=== PATIENT | female | born 2000 | race Caucasian/White ===

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

== ENCOUNTER 2022-07-06 17:08 | Inpatient (IN) ==
[2022-07-06 17:47] LABS: Appearance Urine Clear (Clear); Bilirubin Urine Negative (Negative); Blood Urine Negative (Negative); Color Urine Yellow; Glucose Urine UA Negative (Negative); Ketones Urine Trace (Negative); Leukocyte Esterase Urine Negative (Negative); Nitrite Urine Negative (Negative); Protein Urine Negative (Negative); Specific Gravity Urine 1.024 (1.000-1.030); Urobilinogen Urine Negative (Negative)
[2022-07-06 17:54] LABS: Basophils # (auto) 0.05 K/uL (0-0.2); Basophils % (auto) 0.6 %; Eosinophils # (auto) 0.15 K/uL (0-0.50); Eosinophils % (auto) 1.8 %; Hematocrit (blood only) 36.8 % (34.1-44.9); Hemoglobin 12.7 g/dl (12.0-16.0); Immature Granulocytes # (auto) 0.02 K/uL (0.00-0.02); Immature Granulocytes % (auto) 0.2 %; Lymphocytes # (auto) 3.12 K/uL (1.2-3.4); Lymphocytes % (auto) 37.4 %; Mean Corpuscular Hgb Conc 34.5 g/dL (32.0-36.0); Mean Corpuscular Volume 86.8 fL (80.0-100.0); Mean Platelet Volume 9.3 fL (9.4-12.3); Monocytes # (auto) 0.55 K/uL (0.24-0.82); Monocytes % (auto) 6.6 %; Neutrophils # (auto) 4.46 K/uL (1.4-6.5); Neutrophils % (auto) 53.4 %; Platelet Count 292 K/uL (130-400); RDW Coefficient of Variation 11.9 % (11.5-14.5); RDW Standard Deviation 37.3 fL (36.4-46.3); Red Blood Count 4.24 M/uL (3.93-5.22); White Blood Count 8.35 K/ul (4.8-10.8)
[2022-07-06 18:08] LABS: Pregnancy Test, Serum Negative (Negative)
[2022-07-06 18:18] LABS: Amphetamines+Metham, Urine Neg (Neg); Barbiturates, Urine Neg (Neg); Benzodiazepine, Urine Neg (Neg); Cocaine, Urine Neg (Neg); MDMA (Ecstacy), Urine Neg (Neg); Methadone, Urine Neg (Neg); Opiate, Urine Neg (Neg); Phencyclidine, Urine Neg (Neg)
[2022-07-06 18:25] LABS: Alanine Aminotransferase 12 U/L (7-52); Albumin Globulin Ratio 1.7 (0.9-2); Albumin Level 4.7 gm/dl (3.4-5.0); Alkaline Phosphatase 79 U/L (34-104); Anion Gap 7 (3-11); Aspartate Aminotransferase 17 U/L (13-39); BUN Creatinine Ratio 12.5 (10-20); Bilirubin,Total 0.3 mg/dl (0.2-1.0); Blood Urea Nitrogen 6 mg/dl (6-23); Carbon Dioxide 28 mmol/L (21-32); Chloride 104 mmol/L (98-107); Creatinine Clr Calc Pharmacy 135.4 ml/min; Est GFR (African American) > 150.0 ml/min; Est GFR (Non-African American) 142.2 ml/min; Globulin 2.8 gm/dl (2.5-4.0); Glucose 87 mg/dl (70-99(Fasting)); Potassium 3.6 mmol/L (3.5-5.1); Sodium 139 mmol/L (136-145); Total Protein 7.5 gm/dl (6.0-8.3)
--- NOTE | 2022-07-06 18:51 | Emergency Department Note ---
Impression & Plan Suicidal ideation, Crohn's disease ED Provider Note CHIEF COMPLAINT: suicidal ideation HISTORY OF PRESENT ILLNESS: This 21 yo female patient presents to the emergency department with complaints of suicidal ideation. The patient has had thoughts of overdosing on pills. She was diagnosed with Crohn's disease 2 years ago and has not been able to work. She states she has been dealing with her Crohn's disease and fairly persistent diarrhea prohibiting her from working currently. The patient filed for disability but was told by gastroenterology that she is able to work. This has been weighing on her heavily. She states she had a bowel resection that did not help her symptoms. She is currently on a biologic infusion through [facility]. The patient states currently she has no fevers or blood in her stool. She has been having "fairly formed" stools over the last several days. She denies any alcohol intoxication, substance abuse, medication overdose or attempts at self-harm recently. States she was referred to the emergency department by her therapist who states she needs additional services that they are not able to provide as an outpatient. REVIEW OF SYSTEMS: A review of systems was performed with positives and pertinent negatives listed in the history of present illness. 10 systems were reviewed and are otherwise negative. ALLERGIES: see below MEDICATIONS: see below PMH: see below SOCIAL HISTORY: see below DDx: Mood disorder, infection, hypoglycemia, electrolyte abnormalities, cardiac sources, intracerebral event, toxicologic, trauma, neurologic, as well as other pathologies. PHYSICAL EXAM: Vital signs reviewed. General: Well-appearing 21 yo female, in no significant distress. HEENT: No scleral icterus, PERRLA, neck supple. Atraumatic. Cardiovascular: Regular rate and rhythm, no extra sounds. Pulmonary: Clear to auscultation bilaterally, normal work of breathing. Abdomen: Soft, nontender, nondistended, positive bowel sounds. Musculoskeletal: Atraumatic, no peripheral edema. Neurologic: Patient awake alert and oriented x 3 Psych: Positive SI with plan, negative HI Skin: Warm, dry, no rash EMERGENCY DEPARTMENT COURSE/MDM: This patient was evaluated and appeared to be no significant distress. Patient was medically cleared and referred to the mental health nurse case manager for assessment. Patient was felt to require i npatient psychiatric care and was voluntary for admission. 3 S. evaluated the patient she has been accepted for admission. Patient is aware of plan and agrees. DISPOSITION: Admit Past Med/Surg History Medical History Agoraphobia Anxiety Asthma Bipolar 1 disorder Crohn's disease Family history of Crohn's disease PCOS (polycystic ovarian syndrome) Tourettes syndrome Trichotillomania Surgical History No significant past surgical history Family History Mother Family history of thyroid problem Other Anxiety Social History Smoking Status: Never smoker Hx Alcohol Use: No Hx Substance Use: No Preferred Language: Malawian Communication Ability: Effective Immunology Specialist Required: No Beliefs That Will Affect Care: None Current Living Situation: Parent Feels Safe at Home: Yes Assistive Devices: Glasses Allergies Allergies Allergy/AdvReac Type Severity Reaction Status Date / Time cefprozil Allergy Intermediate HIVES Verified 01/10/22 21:14 Home Meds Home Medications Medication Instructions Recorded Confirmed famotidine 10 mg tablet (Heartburn 10 mg PO BID 09/03/20 07/06/22 Relief (famotidine)) dicyclomine 10 mg capsule 10 mg PO QID PRN Abdominal Pain 03/03/21 07/06/22 Lexapro 10 mg PO HS 07/06/22 07/06/22 levonorgestrel-ethinyl estradiol 1 tab PO DAILY 07/06/22 07/06/22 0.1 mg-20 mcg tablet (Vienva) vedolizumab 300 mg intravenous mg IV 07/06/22 solution (Entyvio) Results & Data (ED) Vital Signs Vital Signs - 24 hr 07/06/22 17:12 Temperature 36.5 C Temperature Source Temporal Artery Scan Pulse Rate 97 H Respiratory Rate 18 Blood Pressure 121/86 Blood Pressure Mean 97 Blood Pressure Position Sitting Pulse Oximetry 100 Oxygen Delivery Method Room Air Sepsis Recent Fever Within 48 Hours No Sepsis New/Unexplained Change in Mental Status No Sepsis Action Taken by Nursing No Action Required Home Medications Current Medication List: was personally reviewed by me Laboratory Data Attestation: I reviewed the patient's lab results. Result diagrams: 07/06/22 17:40 07/06/22 17:40 Lab Results 07/06/22 07/06/2222 Range/Units 17:27 17:27 17:40 WBC 8.35 (4.8-10.8) K/ul RBC 4.24 (3.93-5.22) M/uL Hgb 12.7 (12.0-16.0) g/dl Hct 36.8 (34.1-44.9) % MCV 86.8 (80.0-100.0) fL MCH 30.0 (25.0-34.0) pg MCHC 34.5 (32.0-36.0) g/dL RDW Std Deviation 37.3 (36.4-46.3) fL RDW Coeff of Vijay 11.9 (11.5-14.5) % Plt Count 292 (130-400) K/uL MPV 9.3 L (9.4-12.3) fL Immature Gran % (Auto) 0.2 % Neut % (Auto) 53.4 % Lymph % (Auto) 37.4 % [place] % (Auto) 6.6 % Eos % (Auto) 1.8 % Baso % (Auto) 0.6 % Neut # (Auto) 4.46 (1.4-6.5) K/uL Lymph # (Auto) 3.12 (1.2-3.4) K/uL [place] # (Auto) 0.55 (0.24-0.82) K/uL Eos # (Auto) 0.15 (0-0.50) K/uL Baso # (Auto) 0.05 (0-0.2) K/uL Immature Gran # (Auto) 0.02 (0.00-0.02) K/uL Sodium (136-145) mmol/L Potassium (3.5-5.1) mmol/L Chloride (98-107) mmol/L Carbon Dioxide (21-32) mmol/L Anion Gap (3-11) BUN (6-23) mg/dl Creatinine (0.6-1.2) mg/dl Est Cr Clr Drug Dosing ml/min Est GFR ( Amer) ml/min Est GFR (Non-Af Amer) ml/min BUN/Creatinine Ratio (10-20) Glucose (70-99(Fasting)) mg/dl Calcium (8.5-10.1) mg/dl Total Bilirubin (0.2-1.0) mg/dl AST (13-39) U/L ALT (7-52) U/L Alkaline Phosphatase (34-104) U/L Total Protein (6.0-8.3) gm/dl Albumin (3.4-5.0) gm/dl Globulin (2.5-4.0) gm/dl Albumin/Globulin Ratio (0.9-2) TSH (0.300-4.500) uIu/ml HCG, Qual (Negative) Urine Color Yellow Urine Appearance Clear (Clear) Urine pH 6.0 (4.5-7.5) Ur Specific [place] 1.024 (1.000-1.030) Urine Protein Negative (Negative) Urine Glucose (UA) Negative (Negative) Urine Ketones Trace H (Negative) Urine Blood Negative (Negative) Urine Nitrite Negative (Negative) Urine Bilirubin Negative (Negative) Urine Urobilinogen Negative (Negative) Ur Leukocyte Esterase Negative (Negative) Salicylates (3.0-30) mg/dl Urine Opiates Screen Neg (Neg) Ur Methadone, Qual Neg (Neg) Acetaminophen (10-30) ug/ml Urine Barbiturates Neg (Neg) Ur Phencyclidine (PCP) Neg (Neg) U Amphetamin/Meth Scrn Neg (Neg) MDMA (Ecstasy) Screen Neg (Neg) U Benzodiazepines Scrn Neg (Neg) Ur Cocaine Metabolite Neg (Neg) U Marijuana (THC) Screen Neg (Neg) Ethyl Alcohol mg/dL (<10.0) mg/dl SARS-CoV-2, RNA, NAAT (NEGATIVE) 07/06/22 07/06/22 07/06/22 Range/Units 17:40 17:40 17:40 WBC (4.8-10.8) K/ul RBC (3.93-5.22) M/uL Hgb (12.0-16.0) g/dl Hct (34.1-44.9) % MCV (80.0-100.0) fL MCH (25.0-34.0) pg MCHC (32.0-36.0) g/dL RDW Std Deviation (36.4-46.3) fL RDW Coeff of Vijay (11.5-14.5) % Plt Count (130-400) K/uL MPV (9.4-12.3) fL Immature Gran % (Auto) % Neut % (Auto) % Lymph % (Auto) % [place] % (Auto) % Eos % (Auto) % Baso % (Auto) % Neut # (Auto) (1.4-6.5) K/uL Lymph # (Auto) (1.2-3.4) K/uL [place] # (Auto) (0.24-0.82) K/uL Eos # (Auto) (0-0.50) K/uL Baso # (Auto) (0-0.2) K/uL Immature Gran # (Auto) (0.00-0.02) K/uL Sodium 139 (136-145) mmol/L Potassium 3.6 (3.5-5.1) mmol/L Chloride 104 (98-107) mmol/L Carbon Dioxide 28 (21-32) mmol/L Anion Gap 7 (3-11) BUN 6 (6-23) mg/dl Creatinine 0.48 L (0.6-1.2) mg/dl Est Cr Clr Drug Dosing 135.4 ml/min Est GFR ( Amer) > 150.0 ml/min Est GFR (Non-Af Amer) 142.2 ml/min BUN/Creatinine Ratio 12.5 (10-20) Glucose 87 (70-99(Fasting)) mg/dl Calcium 10.0 (8.5-10.1) mg/dl Total Bilirubin 0.3 (0.2-1.0) mg/dl AST 17 (13-39) U/L ALT 12 (7-52) U/L Alkaline Phosphatase 79 (34-104) U/L Total Protein 7.5 (6.0-8.3) gm/dl Albumin 4.7 (3.4-5.0) gm/dl Globulin 2.8 (2.5-4.0) gm/dl Albumin/Globulin Ratio 1.7 (0.9-2) TSH 2.347 (0.300-4.500) uIu/ml HCG, Qual (Negative) Urine Color Urine Appearance (Clear) Urine pH (4.5-7.5) Ur Specific [place] (1.000-1.030) Urine Protein (Negative) Urine Glucose (UA) (Negative) Urine Ketones (Negative) Urine Blood (Negative) Urine Nitrite (Negative) Urine Bilirubin (Negative) Urine Urobilinogen (Negative) Ur Leukocyte Esterase (Negative) Salicylates < 3.0 L (3.0-30) mg/dl Urine Opiates Screen (Neg) Ur Methadone, Qual (Neg) Acetaminophen < 3 L (10-30) ug/ml Urine Barbiturates (Neg) Ur Phencyclidine (PCP) (Neg) U Amphetamin/Meth Scrn (Neg) MDMA (Ecstasy) Screen (Neg) U Benzodiazepines Scrn (Neg) Ur Cocaine Metabolite (Neg) U Marijuana (THC) Screen (Neg) Ethyl Alcohol mg/dL (<10.0) mg/dl SARS-CoV-2, RNA, NAAT (NEGATIVE) 07/06/22 07/06/22 07/06/22 Range/Units 17:40 17:40 17:40 WBC (4.8-10.8) K/ul RBC (3.93-5.22) M/uL Hgb (12.0-16.0) g/dl Hct (34.1-44.9) % MCV (80.0-100.0) fL MCH (25.0-34.0) pg MCHC (32.0-36.0) g/dL RDW Std Deviation (36.4-46.3) fL RDW Coeff of Vijay (11.5-14.5) % Plt Count (130-400) K/uL MPV (9.4-12.3) fL Immature Gran % (Auto) % Neut % (Auto) % Lymph % (Auto) % [place] % (Auto) % Eos % (Auto) % Baso % (Auto) % Neut # (Auto) (1.4-6.5) K/uL Lymph # (Auto) (1.2-3.4) K/uL [place] # (Auto) (0.24-0.82) K/uL Eos # (Auto) (0-0.50) K/uL Baso # (Auto) (0-0.2) K/uL Immature Gran # (Auto) (0.00-0.02) K/uL Sodium (136-145) mmol/L Potassium (3.5-5.1) mmol/L Chloride (98-107) mmol/L Carbon Dioxide (21-32) mmol/L Anion Gap (3-11) BUN (6-23) mg/dl Creatinine (0.6-1.2) mg/dl Est Cr Clr Drug Dosing ml/min Est GFR ( Amer) ml/min Est GFR (Non-Af Amer) ml/min BUN/Creatinine Ratio (10-20) Glucose (70-99(Fasting)) mg/dl Calcium (8.5-10.1) mg/dl Total Bilirubin (0.2-1.0) mg/dl AST (13-39) U/L ALT (7-52) U/L Alkaline Phosphatase (34-104) U/L Total Protein (6.0-8.3) gm/dl Albumin (3.4-5.0) gm/dl Globulin (2.5-4.0) gm/dl Albumin/Globulin Ratio (0.9-2) TSH (0.300-4.500) uIu/ml HCG, Qual Negative (Negative) Urine Color Urine Appearance (Clear) Urine pH (4.5-7.5) Ur Specific [place] (1.000-1.030) Urine Protein (Negative) Urine Glucose (UA) (Negative) Urine Ketones (Negative) Urine Blood (Negative) Urine Nitrite (Negative) Urine Bilirubin (Negative) Urine Urobilinogen (Negative) Ur Leukocyte Esterase (Negative) Salicylates (3.0-30) mg/dl Urine Opiates Screen (Neg) Ur Methadone, Qual (Neg) Acetaminophen (10-30) ug/ml Urine Barbiturates (Neg) Ur Phencyclidine (PCP) (Neg) U Amphetamin/Meth Scrn (Neg) MDMA (Ecstasy) Screen (Neg) U Benzodiazepines Scrn (Neg) Ur Cocaine Metabolite (Neg) U Marijuana (THC) Screen (Neg) Ethyl Alcohol mg/dL < 10.0 (<10.0) mg/dl SARS-CoV-2, RNA, NAAT NEGATIVE (NEGATIVE) Administered Medications Aripiprazole (Aripiprazole 5 Mg Tab) 2.5 mg PO HS CAROLEE Stop: 08/06/22 21:59 Last Admin: 07/07/22 21:35 Dose: 2.5 mg Documented By: EW Bismuth Subsalicylate (Bismuth Subsalicylate Liqd 236 Ml) 15 ml PO PRN PRN PRN Reason: Loose Stool Stop: 08/05/22 21:13 Last Admin: 07/08/22 02:35 Dose: 15 ml Documented By: EW Dicyclomine HCl (Dicyclomine Hcl 10 Mg Cap) 10 mg PO BID [facility] Stop: 08/06/22 10:14 Last Admin: 07/07/22 21:37 Dose: 10 mg Documented By: Admin: 07/07/22 11:01 Dose: 10 mg Documented By: HUONGF Escitalopram Oxalate (Escitalopram Oxalate 10 Mg Tab) 10 mg PO HS [facility] Stop: 08/05/22 21:59 Last Admin: 07/07/22 21:35 Dose: 10 mg Documented By: Admin: 07/06/22 22:11 Dose: 10 mg Documented By: COLTEN Famotidine (Famotidine 10 Mg Tablet) 10 mg PO BID [facility] Stop: 08/05/22 22:14 Last Admin: 07/07/22 21:36 Dose: 10 mg Documented By: Admin: 07/07/22 08:52 Dose: 10 mg Documented By: Admin: 07/06/22 22:38 Dose: 10 mg Documented By: COLTEN Tayloraneous (Norethindrone: Patient's Own Oral Contraceptive) 1 each PO HS S Stop: 08/06/22 21:59 Last Admin: 07/07/22 21:35 Dose: 1 each Documented By: EW Discontinued Medications Dicyclomine HCl (Dicyclomine Hcl 10 Mg Cap) 10 mg PO QID PRN PRN Reason: Pain Stop: 08/05/22 22:07 Last Admin: 07/06/22 22:38 Dose: 10 mg Documented By: COLTEN Browncellaneous ([Vienva] 0.1-20 Mg-Mcg~Order Awaiting Action) 1 each N/A QS [facility] Stop: 08/06/22 15:59 Last Admin: 07/07/22 17:58 Dose: Not Given Documented By: PINKY Blood Pressure Blood Pressure Findings: Normal blood pressure Blood Pressure Disposition: did not require urgent referral Discharge Plan Visit Data Chief Complaint: Mental Health Evaluation Stated Complaint: MENTAL HEALTH EVAULAUATION ED Provider: Sissy Guillermo Discharge Problem: Suicidal ideation, Crohn's disease Patient Disposition: Admitted As Inpatient Discharge Instructions Interventions: ED Discharge Assessment Last Done: 07/06/22 20:45
[2022-07-06 19:08] LABS: Acetaminophen < 3 ug/ml (10-30); Salicylate < 3.0 mg/dl (3.0-30)
[2022-07-06] MEDS ORDERED: hydrOXYzine HCl 25 MG TAB PO PRN ×2 (21:14)
[2022-07-06] MEDS ORDERED: SODIUM CHLORIDE 0.65% NA SOLN 45 ML (OCEAN) PRN (21:14)
[2022-07-06] MEDS ORDERED: BISMUTH SUBSALICYLATE LIQD 236 ML PO PRN (21:14)
[2022-07-06] MEDS ORDERED: ACETAMINOPHEN 325 MG TAB PO PRN (21:14)
[2022-07-06] MEDS ORDERED: ALUMINUM/MAGNESIUM SUSP 30 ML UDC PO PRN (21:14)
[2022-07-06] MEDS ORDERED: MAGNESIUM HYDROXIDE SUSP 30 ML UDC PO PRN (21:14)
[2022-07-06] MEDS ORDERED: DICYCLOMINE HCL 10 MG CAP PO PRN (22:08)
[2022-07-06] MEDS: ESCITALOPRAM OXALATE 10 MG TAB PO SCH (22:11)
[2022-07-06] MEDS: FAMOTIDINE 10 MG TABLET PO SCH (22:38)
[2022-07-07] MEDS: FAMOTIDINE 10 MG TABLET PO SCH ×2 (08:52→21:36)
[2022-07-07] MEDS ORDERED: DICYCLOMINE HCL 10 MG CAP PO PRN (10:05)
[2022-07-07] MEDS: DICYCLOMINE HCL 10 MG CAP PO SCH ×2 (11:01→21:37)
--- NOTE | 2022-07-07 13:48 | History & Physical ---
Date of Service July 07, 2022 Impression / Recommendations Impression 21 yo female with hx of inpatient care age 18 for ?activation on medication that was initially started for Tourette's, presents with ongoing anxiety/compulsions/somatic preoccupation in the context of poorly controlled Crohn's symptoms. (1) Anxiety: (2) Crohn's disease: Plan The patient was admitted to the [facility] ([facility]) on q15 min checks (behavioral with suicide precautions) for safety. The patient will participate in group, recreational, and milieu therapies and will be offered additional individual and family sessions as clinically appropriate. Discussed continuing Lexapro titration to complete trial vs. augmentation with Abilify for more immediate effect and past hospitalization on SSRI. The patient stated she had already spoken with her current prescriber about Abilify. Risks/benefits/alternatives were reviewed re: antipsychotics for mood and/or psychosis. Discussion included but was not limited to metabolic side effects, risks of TD and suicidal thoughts. There were no abnormal motor movements at baseline. Fasting glucose and lipid panel ordered for baseline monitoring. Will start Abilify 2.5 mg this hs. Inventory Assets Strengths: compliant with her medical care, supportive family Needs: assistance with employability assessment, improve coping skills. Suicide Risk Level Suicide Risk Level: Moderate (q15 min suicide checks) Risk Factors Assessment : Yes Do You Have Access To A Gun?: Yes (locked up in a safe) Health Problems: Yes Previous Attempt: No Previous Psychiatric Hospitalization: Yes Protective Factors Assessment Supportive Family: Yes Psychiatric History Identifying Data SAQIB HAJI is a 21-year-old F who currently lives in [place], has a history of inpatient as an adolescent, and was admitted on 07/06/22 20:06 on a 201 voluntary commitment for SI. Chief Complaint "I want to contribute but I just don't see how I can with Crohn's" History of Present Illness The patient reports feeling increasingly frustrated since she had to drop out of high school (cyber program) last year for missed days. She declined an IEP to do a modified course load. She lives with her parents and has limited social interaction (1 life time friend). She recently started seeing a psychiatrist again and has been on Lexapro for "maybe a month" She denies that the SI is new/or worse since on the medication. She started to dissociate (also unchanged on course of medication), meaning depresonalization or derealization and she worried she may harm herself. She hasn't attempted before but she has scratched at her arms. She denies recent hypomania but states that during her pervious hospitalization she was having elevated mood/energy level and increased goal directed activities but this may have been medication induced. She describes being started on "a bunch of stuff, including Haldol" by a doctor who diagnosed her with Tourette's. She denies having many tics a baseline but will tic when anxious. She no longer has motor tics but she will hum until things "feel right." She also reports some rituals around her hygiene, over focus on her appearance and spends "hours" grooming as she is preoccupied with her underbite, etc. Her rituals are often disrupted by cramps/her bowel issues as she will have a bowel movement 1-7 times a day and may be in the bathroom for more than an hour each time. She is afraid to go out and times her meals around going out as she is worried about having bowel incontinence. She has also altered her diet in that she main subsists on supplements/liquid protein drinks. She has lost weight but denies eating disordered behaviors. She states that she was dx with possible bipolar spectrum, OCD, or OCPD due to these traits. She confirmed hx as provided to ED CM below: I met with pt bedside to complete MH and suicide risk assessments. Pt presents on the recommendation of her therapist, Renata Amezquita with [facility]. Pt states her assessment risk scores have been increasing over the past several weeks coupled with worsening suicidal ideations. Pt states that initially she and her therapist were hoping for an IOP but most had a wait of at least a few weeks. Pt and therapist do not feel comfortable waiting that long. Pt denies a firm plan or intent but states she would likely overdose on her pills. No prior suicide attempts noted, no self injury but does have a history, most recently approximately 2 years ago. Pt denies symptoms of psychosis but does endorse some depersonalization and derealization. States she is always tired, takes her a long time to fall asleep and she wakes frequently throughout the night due to her Crohn's disease. Pt does follow with [facility] Psychiatry and sees Dr. Lizzy Hopkins. She takes her meds as prescribed. Denies trauma history. She is requesting a private room if possible due to her Crohn's disease. She is seeking inpatient treatment at this time. Process for medical clearance was explained with pt and her mother verbalizing understanding. Past Psychiatric History Current Psychiatric Diagnosis: MDD Outpatient Services: see above Do You Have Access To A Gun?: Yes (locked up in a safe) Past Medication Trials: Zoloft, Haldol, Lexapro Allergies Allergy/AdvReac Type Severity Reaction Status Date / Time cefprozil Allergy Intermediate HIVES Verified 01/10/22 21:14 Home Medications Medication Instructions Recorded Confirmed Type famotidine 10 mg tablet (Heartburn 10 mg PO BID 09/03/20 07/06/22 History Relief (famotidine)) dicyclomine 10 mg capsule 10 mg PO QID PRN Abdominal Pain 03/03/21 07/06/22 History Lexapro 10 mg PO HS 07/06/22 07/06/22 History levonorgestrel-ethinyl estradiol 1 tab PO DAILY 07/06/22 07/06/22 History 0.1 mg-20 mcg tablet (Vienva) vedolizumab 300 mg intravenous mg IV 07/06/22 History solution (Entyvio) Family History Family History of: Alcoholism/Drug Abuse, Other-List under Comment and Bipolar Family Mental Health History Comment: Pt reports that family has stigma surrounding mental health, so that if there was a history it likely would not be discussed. Pt also reports that paternal half-brother by OD in 2019 at 54 y/o. Alcohol History Hx of Alcohol Use Over the Past 12 Months: No AUDIT Total Score: 0 Smoking Use Have You Smoked or Used Tobacco Products in the Last 30 Days: No Smoking Status: Never smoker Substance History Hx of Prescription Med Misuse Over the Past 12 Months: No Hx of Over the Counter Med Misuse Over the Past 12 Months: No Hx of Inhalent Misuse Over the Past 12 Months: No Hx of Organic Substance Use Over the Past 12 Months: No Hx of Illegal Substances/Street Drug Use Over Past 12 Months: No Problems as a Result of Past Substance Use: None Identified Personal History Living Arrangements: Home Living Arrangements Comments: lives with mom and dad Highest Grade Completed: Did Not Graduate High School Highest Grade Completed Comment: highest grade is 10th grade Marital Status: Single Number Of Children: 0 Beliefs That Will Affect Care: None Hx Legal Problems: No Psychological Trauma History Comment: was teased by family for her appearance Patient History Medical History Agoraphobia Anxiety Asthma Bipolar 1 disorder Crohn's disease Family history of Crohn's disease PCOS (polycystic ovarian syndrome) Tourettes syndrome Trichotillomania Surgical History No significant past surgical history Family History Mother Family history of thyroid problem Other Anxiety Social History Smoking Status: Never smoker Hx Alcohol Use: No Hx Substance Use: No Preferred Language: Iraqi Communication Ability: Effective Hospital Insurance Representative Required: No Beliefs That Will Affect Care: None Current Living Situation: Parent Feels Safe at Home: Yes Assistive Devices: Glasses Review of Systems Review of Systems: All systems reviewed & are unremarkable except as noted in HPI & below Physical Exam Psychiatric: Orientation: alert and oriented x 3 Apperance: appropriately dressed and appropriately groomed Eye Contact: good eye contact Motor Behavior: no abnormal motor movements Speech: normal rate/rhythm/volume of speech Affect: + depressed affect Mood: + depressed mood Thought Process: goal directed thought process Thought Content: reality based without delusions Suicidal Thoughts: denies suicidal plan (unable to safety contract); + reports suicidal thoughts (intermittent, passive as overwhelmed) Homicidal Thoughts: denies homicidal thoughts Hallucinations: no auditory hallucinations and no visual hallucinations Cognition: attention grossly intact and language grossly intact Estimated Intelligence: consistent with education level Insight: + limited insight Judgement: + limited judgement Vital Signs (Past 24 Hours): Last Vital Signs Temp 36.8 C 07/07/22 06:35 Pulse 97 H 07/07/22 06:36 Resp 16 07/07/22 06:35 BP 98/61 L 07/07/22 06:36 Pulse Ox 97 07/06/22 21:32 O2 Del Method 07/06/22 21:32 Exam Statement: A physical exam was performed in the ED by Dr. Guillermo for the purposes of medical clearance. I accept that physical as correct and adequate for the purposes of the inpatient physical exam. Results & Data ([facility]) Laboratory Results Laboratory Results - last 24 hr 07/06/22 07/06/22 07/06/22 17:27 17:27 17:40 WBC 8.35 RBC 4.24 Hgb 12.7 Hct 36.8 MCV 86.8 MCH 30.0 MCHC 34.5 RDW Std Deviation 37.3 RDW Coeff of Vijay 11.9 Plt Count 292 MPV 9.3 L Immature Gran % (Auto) 0.2 Neut % (Auto) 53.4 Lymph % (Auto) 37.4 [place] % (Auto) 6.6 Eos % (Auto) 1.8 Baso % (Auto) 0.6 Neut # (Auto) 4.46 Lymph # (Auto) 3.12 [place] # (Auto) 0.55 Eos # (Auto) 0.15 Baso # (Auto) 0.05 Immature Gran # (Auto) 0.02 Sodium Potassium Chloride Carbon Dioxide Anion Gap BUN Creatinine Est Cr Clr Drug Dosing Est GFR ( Amer) Est GFR (Non-Af Amer) BUN/Creatinine Ratio Glucose Calcium Total Bilirubin AST ALT Alkaline Phosphatase Total Protein Albumin Globulin Albumin/Globulin Ratio TSH HCG, Qual Urine Color Yellow Urine Appearance Clear Urine pH 6.0 Ur Specific [place] 1.024 Urine Protein Negative Urine Glucose (UA) Negative Urine Ketones Trace H Urine Blood Negative Urine Nitrite Negative Urine Bilirubin Negative Urine Urobilinogen Negative Ur Leukocyte Esterase Negative POC Ur Test Salicylates Urine Opiates Screen Neg Ur Methadone, Qual Neg Acetaminophen Urine Barbiturates Neg Ur Phencyclidine (PCP) Neg U Amphetamin/Meth Scrn Neg MDMA (Ecstasy) Screen Neg U Benzodiazepines Scrn Neg Ur Cocaine Metabolite Neg U Marijuana (THC) Screen Neg Ethyl Alcohol mg/dL SARS-CoV-2, RNA, NAAT 07/06/22 07/06/22 07/06/22 17:40 17:40 17:40 WBC RBC Hgb Hct MCV MCH MCHC RDW Std Deviation RDW Coeff of Vij[place] Plt Count MPV Immature Gran % (Auto) Neut % (Auto) Lymph % (Auto) [place] % (Auto) Eos % (Auto) Baso % (Auto) Neut # (Auto) Lymph # (Auto) [place] # (Auto) Eos # (Auto) Baso # (Auto) Immature Gran # (Auto) Sodium 139 Potassium 3.6 Chloride 104 Carbon Dioxide 28 Anion Gap 7 BUN 6 Creatinine 0.48 L Est Cr Clr Drug Dosing 135.4 Est GFR ( Amer) > 150.0 Est GFR (Non-Af Amer) 142.2 BUN/Creatinine Ratio 12.5 Glucose 87 Calcium 10.0 Total Bilirubin 0.3 AST 17 ALT 12 Alkaline Phosphatase 79 Total Protein 7.5 Albumin 4.7 Globulin 2.8 Albumin/Globulin Ratio 1.7 TSH 2.347 HCG, Qual Urine Color Urine Appearance Urine pH Ur Specific [place] Urine Protein Urine Glucose (UA) Urine Ketones Urine Blood Urine Nitrite Urine Bilirubin Urine Urobilinogen Ur Leukocyte Esterase POC Ur Test Salicylates < 3.0 L Urine Opiates Screen Ur Methadone, Qual Acetaminophen < 3 L Urine Barbiturates Ur Phencyclidine (PCP) U Amphetamin/Meth Scrn MDMA (Ecstasy) Screen U Benzodiazepines Scrn Ur Cocaine Metabolite U Marijuana (THC) Screen Ethyl Alcohol mg/dL SARS-CoV-2, RNA, NAAT 07/06/22 07/06/22 07/06/22 17:40 17:40 17:40 WBC RBC Hgb Hct MCV MCH MCHC RDW Std Deviation RDW Coeff of Vij[place] Plt Count MPV Immature Gran % (Auto) Neut % (Auto) Lymph % (Auto) [place] % (Auto) Eos % (Auto) Baso % (Auto) Neut # (Auto) Lymph # (Auto) [place] # (Auto) Eos # (Auto) Baso # (Auto) Immature Gran # (Auto) Sodium Potassium Chloride Carbon Dioxide Anion Gap BUN Creatinine Est Cr Clr Drug Dosing Est GFR ( Amer) Est GFR (Non-Af Amer) BUN/Creatinine Ratio Glucose Calcium Total Bilirubin AST ALT Alkaline Phosphatase Total Protein Albumin Globulin Albumin/Globulin Ratio TSH HCG, Qual Negative Urine Color Urine Appearance Urine pH Ur Specific [place] Urine Protein Urine Glucose (UA) Urine Ketones Urine Blood Urine Nitrite Urine Bilirubin Urine Urobilinogen Ur Leukocyte Esterase POC Ur Test Salicylates Urine Opiates Screen Ur Methadone, Qual Acetaminophen Urine Barbiturates Ur Phencyclidine (PCP) U Amphetamin/Meth Scrn MDMA (Ecstasy) Screen U Benzodiazepines Scrn Ur Cocaine Metabolite U Marijuana (THC) Screen Ethyl Alcohol mg/dL < 10.0 SARS-CoV-2, RNA, NAAT NEGATIVE 07/06/22 Unknown WBC RBC Hgb Hct MCV MCH MCHC RDW Std Deviation RDW Coeff of Vij[place] Plt Count MPV Immature Gran % (Auto) Neut % (Auto) Lymph % (Auto) [place] % (Auto) Eos % (Auto) Baso % (Auto) Neut # (Auto) Lymph # (Auto) [place] # (Auto) Eos # (Auto) Baso # (Auto) Immature Gran # (Auto) Sodium Potassium Chloride Carbon Dioxide Anion Gap BUN Creatinine Est Cr Clr Drug Dosing Est GFR ( Amer) Est GFR (Non-Af Amer) BUN/Creatinine Ratio Glucose Calcium Total Bilirubin AST ALT Alkaline Phosphatase Total Protein Albumin Globulin Albumin/Globulin Ratio TSH HCG, Qual Urine Color Urine Appearance Urine pH Ur Specific [place] Urine Protein Urine Glucose (UA) Urine Ketones Urine Blood Urine Nitrite Urine Bilirubin Urine Urobilinogen Ur Leukocyte Esterase POC Ur Test NEG Salicylates Urine Opiates Screen Ur Methadone, Qual Acetaminophen Urine Barbiturates Ur Phencyclidine (PCP) U Amphetamin/Meth Scrn MDMA (Ecstasy) Screen U Benzodiazepines Scrn Ur Cocaine Metabolite U Marijuana (THC) Screen Ethyl Alcohol mg/dL SARS-CoV-2, RNA, NAAT Current Inpatient Medications Current Inpatient Medications: Current Inpatient Medications Acetaminophen (Acetaminophen 325 Mg Tab) 650 mg PO Q4H PRN PRN Reason: Headache or Minor Fever Stop: 08/05/22 21:13 Al Hydrox/Mg Hydrox/Simethicone (Aluminum/Magnesium Susp 30 Ml Udc) 30 ml PO Q4H PRN PRN Reason: GI Upset Stop: 08/05/22 21:13 Aripiprazole (Aripiprazole 5 Mg Tab) 2.5 mg PO HS CAROLEE Stop: 08/06/22 21:59 Bismuth Subsalicylate (Bismuth Subsalicylate Liqd 236 Ml) 15 ml PO PRN PRN PRN Reason: Loose Stool Stop: 08/05/22 21:13 Dicyclomine HCl (Dicyclomine Hcl 10 Mg Cap) 10 mg PO Q12 PRN PRN Reason: Pain Stop: 08/05/22 22:07 Dicyclomine HCl (Dicyclomine Hcl 10 Mg Cap) 10 mg PO BID CAROLEE Stop: 08/06/22 10:14 Last Admin: 07/07/22 11:01 Dose: 10 mg Escitalopram Oxalate (Escitalopram Oxalate 10 Mg Tab) 10 mg PO HS CAROLEE Stop: 08/05/22 21:59 Last Admin: 07/06/22 22:11 Dose: 10 mg Famotidine (Famotidine 10 Mg Tablet) 10 mg PO BID CAROLEE Stop: 08/05/22 22:14 Last Admin: 07/07/22 08:52 Dose: 10 mg Hydroxyzine HCl (Hydroxyzine Hcl 25 Mg Tab) 50 mg PO HSZ PRN PRN Reason: Insomnia Stop: 08/05/22 21:13 Hydroxyzine HCl (Hydroxyzine Hcl 25 Mg Tab) 25 mg PO Q4H PRN PRN Reason: Anxiety Stop: 08/05/22 21:13 Magnesium Hydroxide (Magnesium Hydroxide Susp 30 Ml Udc) 30 ml PO DAILY PRN PRN Reason: Constipation Stop: 08/05/22 21:13 Miscellaneous ([Vienva] 0.1-20 Mg-Mcg~Order Awaiting Action) 1 each N/A QS CAROLEE Stop: 08/06/22 15:59 Sodium Chloride (Sodium Chloride 0.65% Na Soln 45 Ml ([place])) 1 - 2 sprays NA PRN PRN PRN Reason: Nasal Dryness/Congestion Stop: 08/05/22 21:13
[2022-07-07] MEDS: [UNRECOGNIZED DRUG - OTHER] PO SCH (21:35)
[2022-07-07] MEDS: ESCITALOPRAM OXALATE 10 MG TAB PO SCH (21:35)
[2022-07-07] MEDS ORDERED: ARIPiprazole 5 MG TAB PO SCH (22:00)
[2022-07-08 07:52] LABS: Chol HDL Ratio 2.8 (0-5)
[2022-07-08] MEDS: FAMOTIDINE 10 MG TABLET PO SCH ×2 (09:02→20:53)
[2022-07-08] MEDS: DICYCLOMINE HCL 10 MG CAP PO SCH ×2 (09:02→20:52)
[2022-07-08] MEDS ORDERED: ONDANSETRON 4 MG OD TAB PO PRN (09:53)
[2022-07-08] MEDS ORDERED: ONDANSETRON 4 MG OD TAB PO STA (09:54)
--- NOTE | 2022-07-08 13:33 | Psychiatric Progress Note ---
Date of Service July 08, 2022 Impression / Recommendations Impression 21 yo female with hx of inpatient care age 18 for ?activation on medication that was initially started for Tourette's, presents with ongoing anxiety/compulsions/somatic preoccupation in the context of poorly controlled Crohn's symptoms. 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 07/07/22: The patient was admitted to the [facility] on q15 min checks (behavioral with suicide precautions) for safety. The patient will participate in group, recreational, and milieu therapies and will be offered additional individual and family sessions as clinically appropriate. Discussed continuing Lexapro titration to complete trial vs. augmentation with Abilify for more immediate effect and past hospitalization on SSRI. The patient stated she had already spoken with her current prescriber about Abilify. Risks/benefits/alternatives were reviewed re: antipsychotics for mood and/or psychosis. Discussion included but was not limited to metabolic side effects, risks of TD and suicidal thoughts. There were no abnormal motor movements at baseline. Fasting glucose and lipid panel ordered for baseline monitoring. Will start Abilify 2.5 mg this hs. Inventory Assets Strengths: compliant with her medical care, supportive family Needs: assistance with employability assessment, improve coping skills. Suicide Risk Level Suicide Risk Level: Moderate (q15 min suicide checks) Risk Factors Assessment : Yes Do You Have Access To A Gun?: Yes (locked up in a safe) Health Problems: Yes Previous Attempt: No Previous Psychiatric Hospitalization: Yes Protective Factors Assessment Supportive Family: Yes Interval History Identifying Information SAQIB HAJI is a 21-year-old F who currently lives in [place], has a history of inpatient as an adolescent, and was admitted on 07/06/22 20:06 on a 201 voluntary commitment for SI. Chief Complaint N and dizziness this am Review of Systems Sleep Information Total Hours of Sleep: 4.5 Sleep Comments: stomach upset around 0230. Meal Information Percent Meal Consumed - Breakfast: 20 Percent Meal Consumed - Lunch: 95 Percent Meal Consumed - Dinner: 90 Subjective Subjective Patient was seen & assessed and interval progress reviewed with treatment team. symptoms started last pm after first dose of Abilify. She report throwing up earlier this am. rather than dizzy she describes ligh headed "like I might pass out.) Recheck of BP by nurse did not indicate orthostasis. Sits up without issue/symptoms and steady gait. Physical Exam Psychiatric Orientation: alert and oriented x 3 Apperance: appropriately dressed and appropriately groomed Eye Contact: good eye contact Motor Behavior: no abnormal motor movements Speech: normal rate/rhythm/volume of speech Affect: + depressed affect Mood: + depressed mood Thought Process: goal directed thought process Thought Content: reality based without delusions Suicidal Thoughts: denies suicidal plan (unable to safety contract); + reports suicidal thoughts (intermittent, passive as overwhelmed) Homicidal Thoughts: denies homicidal thoughts Hallucinations: no auditory hallucinations and no visual hallucinations Cognition: attention grossly intact and language grossly intact Estimated Intelligence: consistent with education level Insight: + limited insight Judgement: + limited judgement Vital Signs (Past 24 Hours) Last Vital Signs Temp 37 C 07/08/22 06:48 Pulse 91 H 07/08/22 06:49 Resp 16 07/08/22 06:48 BP 91/57 L 07/08/22 06:49 Pulse Ox 97 07/06/22 21:32 O2 Del Method 07/06/22 21:32 Results & Data ([facility]) Laboratory Results Laboratory Results - last 24 hr 07/08/22 07:13 Fasting Glucose 95 Triglycerides 81 Cholesterol 153 LDL Cholesterol, Calc 83 VLDL Cholesterol, Calc 16 HDL Cholesterol 54 Cholesterol/HDL Ratio 2.8 Current Inpatient Medications Current Inpatient Medications: Current Inpatient Medications Acetaminophen (Acetaminophen 325 Mg Tab) 650 mg PO Q4H PRN PRN Reason: Headache or Minor Fever Stop: 08/05/22 21:13 Al Hydrox/Mg Hydrox/Simethicone (Aluminum/Magnesium Susp 30 Ml Udc) 30 ml PO Q4H PRN PRN Reason: GI Upset Stop: 08/05/22 21:13 Aripiprazole (Aripiprazole 1 Mg/Ml Oral Soln 150 Ml Btl) 1 mg PO HS CAROLEE Stop: 08/07/22 21:59 Bismuth Subsalicylate (Bismuth Subsalicylate Liqd 236 Ml) 15 ml PO PRN PRN PRN Reason: Loose Stool Stop: 08/05/22 21:13 Last Admin: 07/08/22 02:35 Dose: 15 ml Dicyclomine HCl (Dicyclomine Hcl 10 Mg Cap) 10 mg PO Q12 PRN PRN Reason: Pain Stop: 08/05/22 22:07 Dicyclomine HCl (Dicyclomine Hcl 10 Mg Cap) 10 mg PO BID CAROLEE Stop: 08/06/22 10:14 Last Admin: 07/08/22 09:02 Dose: 10 mg Escitalopram Oxalate (Escitalopram Oxalate 10 Mg Tab) 10 mg PO HS CAROLEE Stop: 08/05/22 21:59 Last Admin: 07/07/22 21:35 Dose: 10 mg Famotidine (Famotidine 10 Mg Tablet) 10 mg PO BID CAROLEE Stop: 08/05/22 22:14 Last Admin: 07/08/22 09:02 Dose: 10 mg Hydroxyzine HCl (Hydroxyzine Hcl 25 Mg Tab) 50 mg PO HSZ PRN PRN Reason: Insomnia Stop: 08/05/22 21:13 Hydroxyzine HCl (Hydroxyzine Hcl 25 Mg Tab) 25 mg PO Q4H PRN PRN Reason: Anxiety Stop: 08/05/22 21:13 Magnesium Hydroxide (Magnesium Hydroxide Susp 30 Ml Udc) 30 ml PO DAILY PRN PRN Reason: Constipation Stop: 08/05/22 21:13 Miscellaneous (Norethindrone: Patient's Own Oral Contraceptive) 1 each PO HS CAROLEE Stop: 08/06/22 21:59 Last Admin: 07/07/22 21:35 Dose: 1 each Ondansetron HCl (Ondansetron 4 Mg Od Tab) 4 mg PO Q6H PRN PRN Reason: Nausea Stop: 08/07/22 09:52 Sodium Chloride (Sodium Chloride 0.65% Na Soln 45 Ml ([place])) 1 - 2 sprays NA PRN PRN PRN Reason: Nasal Dryness/Congestion Stop: 08/05/22 21:13 Mental Health & Subst Abuse Tx Psychiatrist Name of Psychiatrist: Dr. Lizzy Hopkins Psychiatrist's Date of Appointment with Psychiatrist: 07/14/22 Time of Appointment with Psychiatrist: 3 PM Psychiatric Appointment Comment: This appointment is via telehealth. Therapist Name of Therapist: Renata Amezquita Therapist's Date of Therapist Appointment: 07/27/22 Time of Therapist Appointment: 9 AM Therapy Appointment Comment: This appointment is via telehealth. Post Discharge Appointments Primary Care Physician Name Of Family Doctor: Koki Moreira - Dr. Long [place] Provider Appointment Comment: Please follow-up as needed. Contact Information Discharge Discharge Address: [facility] [address], [place] [address] (1) Crohn's disease Digestive disease complication type: without complication Gastrointestinal tract location: unspecified location Qualified Code(s): K50.90 - Crohn's disease, unspecified, without complications
[2022-07-08] MEDS: ESCITALOPRAM OXALATE 10 MG TAB PO SCH (20:54)
[2022-07-08] MEDS: ARIPIprazole 1 MG/ML ORAL SOLN 150 ML BTL PO SCH (20:55)
[2022-07-08] MEDS: [UNRECOGNIZED DRUG - OTHER] PO SCH (20:56)
[2022-07-09] MEDS: FAMOTIDINE 10 MG TABLET PO SCH ×2 (09:04→21:05)
[2022-07-09] MEDS: DICYCLOMINE HCL 10 MG CAP PO SCH ×2 (09:04→21:05)
--- NOTE | 2022-07-09 14:45 | Psychiatric Progress Note ---
Date of Service July 09, 2022 Impression / Recommendations Impression 21 yo female with hx of inpatient care age 18 for ?activation on medication that was initially started for Tourette's, presents with ongoing anxiety/compulsions/somatic preoccupation in the context of poorly controlled Crohn's symptoms. MNPR due to Crohn's, immunosupressant 07/09/22: improving (1) Anxiety: (2) Crohn's disease: Plan 07/09/22: continue current medication and tx plan. 07/08/22: decrease Abilify to 1 mg this hs (assuming physical symptoms improve as day goes on), Zofran prn. 07/07/22: The patient was admitted to the [facility] ([facility]) on q15 min checks (behavioral with suicide precautions) for safety. The patient will participate in group, recreational, and milieu therapies and will be offered additional individual and family sessions as clinically appropriate. Discussed continuing Lexapro titration to complete trial vs. augmentation with Abilify for more immediate effect and past hospitalization on SSRI. The patient stated she had already spoken with her current prescriber about Abilify. Risks/benefits/alternatives were reviewed re: antipsychotics for mood and/or psychosis. Discussion included but was not limited to metabolic side effects, risks of TD and suicidal thoughts. There were no abnormal motor movements at baseline. Fasting glucose and lipid panel ordered for baseline monitoring. Will start Abilify 2.5 mg this hs. Inventory Assets Strengths: compliant with her medical care, supportive family Needs: assistance with employability assessment, improve coping skills. Suicide Risk Level Suicide Risk Level: Moderate (q15 min suicide checks) Risk Factors Assessment : Yes Do You Have Access To A Gun?: Yes (locked up in a safe) Health Problems: Yes Previous Attempt: No Previous Psychiatric Hospitalization: Yes Protective Factors Assessment Supportive Family: Yes Interval History Identifying Information SAQIB HAJI is a 21-year-old F who currently lives in [place], has a history of inpatient as an adolescent, and was admitted on 07/06/22 20:06 on a 201 voluntary commitment for SI. Chief Complaint "I'm feeling some better today but really overwhelmed by Crohn's" Review of Systems Sleep Information Total Hours of Sleep: 8 Sleep Comments: stomach upset around 0230. Meal Information Percent Meal Consumed - Breakfast: 100 Percent Meal Consumed - Lunch: 75 Percent Meal Consumed - Dinner: 100 Subjective Subjective Patient was seen & assessed and interval progress reviewed with nursing and social work. Patient is tolerating Abilify 1 mg. Feels better energy today. no change in Crohn's symptoms. Stressed about disability and GI appointment. She plans to ask to see SENIOR PROJECT LEADER/TEAM LEAD collaborating physician for a second opinion. Eating better here than what reported from home. Physical Exam Psychiatric Orientation: alert and oriented x 3 Apperance: appropriately dressed and appropriately groomed Eye Contact: good eye contact Motor Behavior: no abnormal motor movements Speech: normal rate/rhythm/volume of speech Affect: + depressed affect Mood: + depressed mood Thought Process: goal directed thought process Thought Content: reality based without delusions Suicidal Thoughts: denies suicidal plan (unable to safety contract); + reports suicidal thoughts (intermittent, passive as overwhelmed) Homicidal Thoughts: denies homicidal thoughts Hallucinations: no auditory hallucinations and no visual hallucinations Cognition: attention grossly intact and language grossly intact Estimated Intelligence: consistent with education level Insight: + limited insight Judgement: + limited judgement Vital Signs (Past 24 Hours) Last Vital Signs Temp 36.8 C 07/09/22 06:53 Pulse 73 07/09/22 06:55 Resp 16 07/09/22 06:53 BP 104/68 07/09/22 06:55 Pulse Ox 97 07/09/22 06:53 O2 Del Method 07/06/22 21:32 Results & Data ([facility]) Current Inpatient Medications Current Inpatient Medications: Current Inpatient Medications Acetaminophen (Acetaminophen 325 Mg Tab) 650 mg PO Q4H PRN PRN Reason: Headache or Minor Fever Stop: 08/05/22 21:13 Al Hydrox/Mg Hydrox/Simethicone (Aluminum/Magnesium Susp 30 Ml Udc) 30 ml PO Q4H PRN PRN Reason: GI Upset Stop: 08/05/22 21:13 Aripiprazole (Aripiprazole 1 Mg/Ml Oral Soln 150 Ml Btl) 1 mg PO HS CAROLEE Stop: 08/07/22 21:59 Last Admin: 07/08/22 20:55 Dose: 1 mg Bismuth Subsalicylate (Bismuth Subsalicylate Liqd 236 Ml) 15 ml PO PRN PRN PRN Reason: Loose Stool Stop: 08/05/22 21:13 Last Admin: 07/08/22 02:35 Dose: 15 ml Dicyclomine HCl (Dicyclomine Hcl 10 Mg Cap) 10 mg PO Q12 PRN PRN Reason: Pain Stop: 08/05/22 22:07 Dicyclomine HCl (Dicyclomine Hcl 10 Mg Cap) 10 mg PO BID CAROLEE Stop: 08/06/22 10:14 Last Admin: 07/09/22 09:04 Dose: 10 mg Escitalopram Oxalate (Escitalopram Oxalate 10 Mg Tab) 10 mg PO HS CAROLEE Stop: 08/05/22 21:59 Last Admin: 07/08/22 20:54 Dose: 10 mg Famotidine (Famotidine 10 Mg Tablet) 10 mg PO BID CAROLEE Stop: 08/05/22 22:14 Last Admin: 07/09/22 09:04 Dose: 10 mg Hydroxyzine HCl (Hydroxyzine Hcl 25 Mg Tab) 50 mg PO HSZ PRN PRN Reason: Insomnia Stop: 08/05/22 21:13 Hydroxyzine HCl (Hydroxyzine Hcl 25 Mg Tab) 25 mg PO Q4H PRN PRN Reason: Anxiety Stop: 08/05/22 21:13 Magnesium Hydroxide (Magnesium Hydroxide Susp 30 Ml Udc) 30 ml PO DAILY PRN PRN Reason: Constipation Stop: 08/05/22 21:13 Miscellaneous (Norethindrone: Patient's Own Oral Contraceptive) 1 each PO HS CAROLEE Stop: 08/06/22 21:59 Last Admin: 07/08/22 20:56 Dose: 1 each Ondansetron HCl (Ondansetron 4 Mg Od Tab) 4 mg PO Q6H PRN PRN Reason: Nausea Stop: 08/07/22 09:52 Last Admin: 07/08/22 20:54 Dose: 4 mg Sodium Chloride (Sodium Chloride 0.65% Na Soln 45 Ml ([place])) 1 - 2 sprays NA PRN PRN PRN Reason: Nasal Dryness/Congestion Stop: 08/05/22 21:13 Mental Health & Subst Abuse Tx Psychiatrist Name of Psychiatrist: Dr. Lizzy Hopkins Psychiatrist's Date of Appointment with Psychiatrist: 07/14/22 Time of Appointment with Psychiatrist: 3 PM Psychiatric Appointment Comment: This appointment is via telehealth. Therapist Name of Therapist: Renata Amezquita Therapist's Date of Therapist Appointment: 07/27/22 Time of Therapist Appointment: 9 AM Therapy Appointment Comment: This appointment is via telehealth. Pharmacy Technician Infusion Name of Pharmacy Technician Infusion: [facility] Nida Iglesias Phone Number for Pharmacy Technician Infusion: [phone] Date of Appointment with Pharmacy Technician Infusion: 07/17/22 Time of Appointment with Pharmacy Technician Infusion: 9:00 AM Case Management Appointment Comment: Will meet with you at your home. Post Discharge Appointments Primary Care Physician Name Of Family Doctor: Koki Moreira - Dr. Long [place] Provider Appointment Comment: Please follow-up as needed. Contact Information Discharge Discharge Address: [facility] [address] , [place] [address] (1) Crohn's disease Digestive disease complication type: without complication Gastrointestinal tract location: unspecified location Qualified Code(s): K50.90 - Crohn's disease, unspecified, without complications
[2022-07-09 20:09] VITALS: TEMP 99.8
[2022-07-09] MEDS: ARIPIprazole 1 MG/ML ORAL SOLN 150 ML BTL PO SCH (21:05)
[2022-07-09] MEDS: ESCITALOPRAM OXALATE 10 MG TAB PO SCH (21:05)
[2022-07-09] MEDS: [UNRECOGNIZED DRUG - OTHER] PO SCH (21:05)
[2022-07-10 06:38] VITALS: O2SAT 99
--- NOTE | 2022-07-10 09:42 | Discharge Summary ---
Date of Service July 10, 2022 History of Present Illness The patient reports feeling increasingly frustrated since she had to drop out of high school ([employer] program) last year for missed days. She declined an IEP to do a modified course load. She lives with her parents and has limited social interaction (1 life time friend). She recently started seeing a psychiatrist again and has been on Lexapro for "maybe a month" She denies that the SI is new/or worse since on the medication. She started to dissociate (also unchanged on course of medication), meaning depresonalization or derealization and she worried she may harm herself. She hasn't attempted before but she has scratched at her arms. She denies recent hypomania but states that during her pervious hospitalization she was having elevated mood/energy level and increased goal directed activities but this may have been medication induced. She describes being started on "a bunch of stuff, including Haldol" by a doctor who diagnosed her with Tourette's. She denies having many tics a baseline but will tic when anxious. She no longer has motor tics but she will hum until things "feel right." She also reports some rituals around her hygiene, over focus on her appearance and spends "hours" grooming as she is preoccupied with her underbite, etc. Her rituals are often disrupted by cramps/her bowel issues as she will have a bowel movement 1-7 times a day and may be in the bathroom for more than an hour each time. She is afraid to go out and times her meals around going out as she is worried about having bowel incontinence. She has also altered her diet in that she main subsists on supplements/liquid protein drinks. She has lost weight but denies eating disordered behaviors. She states that she was dx with possible bipolar spectrum, OCD, or OCPD due to these traits. She confirmed hx as provided to ED CM below: I met with pt bedside to complete MH and suicide risk assessments. Pt presents on the recommendation of her therapist, Renata Amezquita with [facility]. Pt states her assessment risk scores have been increasing over the past several weeks coupled with worsening suicidal ideations. Pt states that initially she and her therapist were hoping for an IOP but most had a wait of at least a few weeks. Pt and therapist do not feel comfortable waiting that long. Pt denies a firm plan or intent but states she would likely overdose on her pills. No prior suicide attempts noted, no self injury but does have a history, most recently approximately 2 years ago. Pt denies symptoms of psychosis but does endorse some depersonalization and derealization. States she is always tired, takes her a long time to fall asleep and she wakes frequently throughout the night due to her Crohn's disease. Pt does follow with [facility] Psychiatry and sees Dr. Lizzy Hopkins. She takes her meds as prescribed. Denies trauma history. She is requesting a private room if possible due to her Crohn's disease. She is seeking inpatient treatment at this time. Process for medical clearance was explained with pt and her mother verbalizing understanding. Physical Exam Psychiatric See admission H&P and DOD assessment. Vital Signs (Past 24 Hours) Last Vital Signs Temp 37.7 C H 07/10/22 06:36 Pulse 81 07/10/22 06:38 Resp 16 07/10/22 06:36 BP 96/68 L 07/10/22 06:38 Pulse Ox 99 07/10/22 06:36 O2 Del Method 07/10/22 06:36 Principal Diagnosis anxiety disorder Psychiatric Data See daily stay summary. In short, safety was maintained and the patient was cooperative with care. Medication changes included a trial of Abilify augmentation. She experienced dizziness and nausea starting 2.5 mg which resolved quickly and dose was decreased to 1 mg for 2 night which she tolerated well. A family session was held and safety plan was completed prior to discharge. She was agreeable to a CM referral for ongoing assistance in navigating outpatient and OVR services. Day of Discharge Assessment Today the patient voices readiness for discharge. They note improvement in mood and deny thoughts to harm self or others. Thoughts remain organized and they are improved from admission. There is no evidence of psychosis. They agree to take mediations as prescribed and keep follow-up appointments. They are stable for discharge to outpatient level of care. Transition of Care Transition Of Care Record: was reviewed with the patient Advance Directives Advance Directives Information Provided: Yes Advance Directives: No Mental Health Advance Directive: No Advance Directives on File: No Living Will: No Power of Manipulative Therapy Specialist: No Advance Directives Reason:: Declines as Mental Health Visit. Risk Factors Assessment : Yes Do You Have Access To A Gun?: Yes (locked up in a safe) Health Problems: Yes Previous Attempt: No Previous Psychiatric Hospitalization: Yes Protective Factors Assessment Supportive Family: Yes Tobacco Cessation at Discharge Tobacco Cessation Medication Prescribed at Discharge: Not Applicable/Non-Smoker Total Time Total Time Spent: Greater Than 30 Minutes Total Time Includes: Examination of the patient, Discharge Planning and Medication Reconciliation Discharge Data Lab Results 07/06/22 07/06/22 07/06/22 17:27 17:27 17:40 WBC 8.35 RBC 4.24 Hgb 12.7 Hct 36.8 MCV 86.8 MCH 30.0 MCHC 34.5 RDW Std Deviation 37.3 RDW Coeff of Vijay 11.9 Plt Count 292 MPV 9.3 L Immature Gran % (Auto) 0.2 Neut % (Auto) 53.4 Lymph % (Auto) 37.4 [place]on % (Auto) 6.6 Eos % (Auto) 1.8 Baso % (Auto) 0.6 Neut # (Auto) 4.46 Lymph # (Auto) 3.12 [place]on # (Auto) 0.55 Eos # (Auto) 0.15 Baso # (Auto) 0.05 Immature Gran # (Auto) 0.02 Sodium Potassium Chloride Carbon Dioxide Anion Gap BUN Creatinine Est Cr Clr Drug Dosing Est GFR ( Amer) Est GFR (Non-Af Amer) BUN/Creatinine Ratio Glucose Fasting Glucose Calcium Total Bilirubin AST ALT Alkaline Phosphatase Total Protein Albumin Globulin Albumin/Globulin Ratio Triglycerides Cholesterol LDL Cholesterol, Calc VLDL Cholesterol, Calc HDL Cholesterol Cholesterol/HDL Ratio TSH HCG, Qual Urine Color Yellow Urine Appearance Clear Urine pH 6.0 Ur Specific Eads 1.024 Urine Protein Negative Urine Glucose (UA) Negative Urine Ketones Trace H Urine Blood Negative Urine Nitrite Negative Urine Bilirubin Negative Urine Urobilinogen Negative Ur Leukocyte Esterase Negative POC Ur Test Salicylates Urine Opiates Screen Neg Ur Methadone, Qual Neg Acetaminophen Urine Barbiturates Neg Ur Phencyclidine (PCP) Neg U Amphetamin/Meth Scrn Neg MDMA (Ecstasy) Screen Neg U Benzodiazepines Scrn Neg Ur Cocaine Metabolite Neg U Marijuana (THC) Screen Neg Ethyl Alcohol mg/dL SARS-CoV-2, RNA, NAAT 07/06/22 07/06/22 07/06/22 17:40 17:40 17:40 WBC RBC Hgb Hct MCV MCH MCHC RDW Std Deviation RDW Coeff of Vijay Plt Count MPV Immature Gran % (Auto) Neut % (Auto) Lymph % (Auto) Culberson % (Auto) Eos % (Auto) Baso % (Auto) Neut # (Auto) Lymph # (Auto) [place] # (Auto) Eos # (Auto) Baso # (Auto) Immature Gran # (Auto) Sodium 139 Potassium 3.6 Chloride 104 Carbon Dioxide 28 Anion Gap 7 BUN 6 Creatinine 0.48 L Est Cr Clr Drug Dosing 135.4 Est GFR ( Amer) > 150.0 Est GFR (Non-Af Amer) 142.2 BUN/Creatinine Ratio 12.5 Glucose 87 Fasting Glucose Calcium 10.0 Total Bilirubin 0.3 AST 17 ALT 12 Alkaline Phosphatase 79 Total Protein 7.5 Albumin 4.7 Globulin 2.8 Albumin/Globulin Ratio 1.7 Triglycerides Cholesterol LDL Cholesterol, Calc VLDL Cholesterol, Calc HDL Cholesterol Cholesterol/HDL Ratio TSH 2.347 HCG, Qual Urine Color Urine Appearance Urine pH Ur Specific Eads Urine Protein Urine Glucose (UA) Urine Ketones Urine Blood Urine Nitrite Urine Bilirubin Urine Urobilinogen Ur Leukocyte Esterase POC Ur Test Salicylates < 3.0 L Urine Opiates Screen Ur Methadone, Qual Acetaminophen < 3 L Urine Barbiturates Ur Phencyclidine (PCP) U Amphetamin/Meth Scrn MDMA (Ecstasy) Screen U Benzodiazepines Scrn Ur Cocaine Metabolite U Marijuana (THC) Screen Ethyl Alcohol mg/dL SARS-CoV-2, RNA, NAAT 07/06/22 07/06/22 07/06/22 17:40 17:40 17:40 WBC RBC Hgb Hct MCV MCH MCHC RDW Std Deviation RDW Coeff of Vijay Plt Count MPV Immature Gran % (Auto) Neut % (Auto) Lymph % (Auto) [place] % (Auto) Eos % (Auto) Baso % (Auto) Neut # (Auto) Lymph # (Auto) [place] # (Auto) Eos # (Auto) Baso # (Auto) Immature Gran # (Auto) Sodium Potassium Chloride Carbon Dioxide Anion Gap BUN Creatinine Est Cr Clr Drug Dosing Est GFR ( Amer) Est GFR (Non-Af Amer) BUN/Creatinine Ratio Glucose Fasting Glucose Calcium Total Bilirubin AST ALT Alkaline Phosphatase Total Protein Albumin Globulin Albumin/Globulin Ratio Triglycerides Cholesterol LDL Cholesterol, Calc VLDL Cholesterol, Calc HDL Cholesterol Cholesterol/HDL Ratio TSH HCG, Qual Negative Urine Color Urine Appearance Urine pH Ur Specific Eads Urine Protein Urine Glucose (UA) Urine Ketones Urine Blood Urine Nitrite Urine Bilirubin Urine Urobilinogen Ur Leukocyte Esterase POC Ur Test Salicylates Urine Opiates Screen Ur Methadone, Qual Acetaminophen Urine Barbiturates Ur Phencyclidine (PCP) U Amphetamin/Meth Scrn MDMA (Ecstasy) Screen U Benzodiazepines Scrn Ur Cocaine Metabolite U Marijuana (THC) Screen Ethyl Alcohol mg/dL < 10.0 SARS-CoV-2, RNA, NAAT NEGATIVE 07/06/22 07/08/22 Unknown 07:13 WBC RBC Hgb Hct MCV MCH MCHC RDW Std Deviation RDW Coeff of Vijay Plt Count MPV Immature Gran % (Auto) Neut % (Auto) Lymph % (Auto) [place] % (Auto) Eos % (Auto) Baso % (Auto) Neut # (Auto) Lymph # (Auto) [place] # (Auto) Eos # (Auto) Baso # (Auto) Immature Gran # (Auto) Sodium Potassium Chloride Carbon Dioxide Anion Gap BUN Creatinine Est Cr Clr Drug Dosing Est GFR ( Amer) Est GFR (Non-Af Amer) BUN/Creatinine Ratio Glucose Fasting Glucose 95 Calcium Total Bilirubin AST ALT Alkaline Phosphatase Total Protein Albumin Globulin Albumin/Globulin Ratio Triglycerides 81 Cholesterol 153 LDL Cholesterol, Calc 83 VLDL Cholesterol, Calc 16 HDL Cholesterol 54 Cholesterol/HDL Ratio 2.8 TSH HCG, Qual Urine Color Urine Appearance Urine pH Ur Specific Eads Urine Protein Urine Glucose (UA) Urine Ketones Urine Blood Urine Nitrite Urine Bilirubin Urine Urobilinogen Ur Leukocyte Esterase POC Ur Test NEG Salicylates Urine Opiates Screen Ur Methadone, Qual Acetaminophen Urine Barbiturates Ur Phencyclidine (PCP) U Amphetamin/Meth Scrn MDMA (Ecstasy) Screen U Benzodiazepines Scrn Ur Cocaine Metabolite U Marijuana (THC) Screen Ethyl Alcohol mg/dL SARS-CoV-2, RNA, NAAT Hospital Course (1) Anxiety: (2) Crohn's disease: Plan 07/09/22: continue current medication and tx plan. 07/08/22: decrease Abilify to 1 mg this hs (assuming physical symptoms improve as day goes on), Zofran prn. 07/07/22: The patient was admitted to the [facility] ([facility]) on q15 min checks (behavioral with suicide precautions) for safety. The patient will participate in group, recreational, and milieu therapies and will be offered additional individual and family sessions as clinically appropriate. Discussed continuing Lexapro titration to complete trial vs. augmentation with Abilify for more immediate effect and past hospitalization on SSRI. The patient stated she had already spoken with her current prescriber about Abilify. Risks/benefits/alternatives were reviewed re: antipsychotics for mood and/or psychosis. Discussion included but was not limited to metabolic side effects, risks of TD and suicidal thoughts. There were no abnormal motor movements at baseline. Fasting glucose and lipid panel ordered for baseline monitoring. Will start Abilify 2.5 mg this hs. Mental Health & Subst Abuse Tx Psychiatrist Name of Psychiatrist: Dr. Lizzy Hopkins Psychiatrist's Date of Appointment with Psychiatrist: 07/14/22 Time of Appointment with Psychiatrist: 3 PM Psychiatric Appointment Comment: This appointment is via telehealth. Psychiatrist Release of Information: Obtained, Reviewed and Signed Therapist Name of Therapist: Renata Amezquita Therapist's Date of Therapist Appointment: 07/27/22 Time of Therapist Appointment: 9 AM Therapy Appointment Comment: This appointment is via telehealth. Therapist Release of Information: Obtained, Reviewed and Signed Sports Book Board Attendant Name of Sports Book Board Attendant: [facility] Phone Number for Sports Book Board Attendant: [phone] Date of Appointment with Sports Book Board Attendant: 07/17/22 Time of Appointment with Sports Book Board Attendant: 9:00 AM Case Management Appointment Comment: Will meet with you at your home. Sports Book Board Attendant Release of Information: Obtained, Reviewed and Signed Post Discharge Appointments Primary Care Physician Name Of Family Doctor: Koki Moreira - Dr. Long Camarillo Provider Appointment Comment: Please follow-up as needed. Primary Care Release of Information: Obtained, Reviewed and Signed Smoking Cessation Counseling Tobacco Cessation Medication Prescribed at Discharge: Not Applicable/Non-Smoker Other #1: Name of Aftercare Appointment: Pelvic Ultrasound Phone Number of Aftercare Appointment: [phone] Date of Aftercare Appointment: 07/15/22 Time of Aftercare Appointment: 2 PM Aftercare Appointment Comment: [address] [place] [address] #2: Name of Aftercare Appointment: [facility] - Intake Phone Number of Aftercare Appointment: Date of Aftercare Appointment: 07/14/22 Time of Aftercare Appointment: 11 AM Aftercare Appointment Comment: A link will be sent to your email to access the session. Release of Information Aftercare Appointment: Obtained, Reviewed and Signed Contact Information Discharge Discharge Address: [address], [place] [address] Discharge Plan Discharge Items Patient Disposition: Home - Self-Care Reason For Visit: MDD Discharge Diagnosis: anxiety disorder Activity: Resume your previous activity Non-emergency contact: Primary Care Provider, Psychiatrist, Therapist and Window Cutter Call non-emergency contact if: you have any medication questions and your symptoms worsen Follow-up/Referrals: Long Camarillo PA-C [Primary Care Provider] - Diet: Regular Addtl Attending Provider Instructions: SPECIAL CARE INSTRUCTIONS: 1. Follow through with your scheduled aftercare appointments. If unable to keep an appointment, please call to reschedule. 2. Take your medication only as prescribed. Medication should not be changed or stopped without the approval of your doctor. In the event of worsening symptoms or concerns about side effects, contact your doctor immediately. 3. Utilize new healthy coping skills, anger management skills, and stress management skills learned during your hospitalization. Journal feelings and process them with a support person. Identify stressors or situations that may result in relapse, deterioration or inappropriate behaviors and develop a plan to deal with those issues. 4. If your coping skills are ineffective and you are in crisis, contact your outpatient providers for direction. If unable to reach your providers, please call the [facility] CRISIS LINE AT , go to the [facility] walk-in center at [address], [address], [place], or go to the closest Emergency Room. 5. Avoid alcohol and un-prescribed drugs. 6. You have been provided with the Mental Health Advance Directives Pamphlet for your review. 7. Your condition is stable for discharge to outpatient level of care, but recovery is an ongoing process. Ifthoughts to harm yourself or others return, follow the safety plan developed during your stay. Planning for a safe return home includes securing weapons. Our treatment team recommends weaponsbe removed from the home until your outpatient provider reassesses your progress. In rare cases where the items themselvescannot be removed, guns and ammunitionshould be secured separatelyand keys stored by a reliable personoutside of the home. If you were admitted on an involuntary commitment, the police or other legal authorities may be involved in this process. AFTERCARE APPOINTMENTS: * Please call your insurance company prior to your scheduled appointment to confirm your aftercare providers are covered. Take your insurance information to your appointments. WHO TO CALL AND WHEN: Medical Emergencies: For questions or emergencies related to your hospital stay, please contact the Inpatient Behavioral Health Unit at [phone]. A scleroscope tester is on-call 22/03 for the Behavioral Health Unit for emergencies At any time you feel your situation is an emergency, you may also call 911 immediately. Pending Studies at Discharge: No Stand-Alone Forms: [facility], Smoking Cessation Medications and DC Order Prescriptions: New aripiprazole [Abilify] 2 mg tablet 2 mg PO DAILY 30 Days Qty: 30 0RF Continued famotidine [Heartburn Relief (famotidine)] 10 mg tablet 10 mg PO BID Lexapro 10 mg tablet 10 mg PO HS levonorgestrel-ethinyl estrad [Vienva] 0.1-20 mg-mcg tablet 1 tab PO DAILY Entyvio 300 mg Recon Soln IV Label Comments: Patient was unsure of dosage - states next due on July 20, 2022 dicyclomine 10 mg capsule 10 mg PO QID PRN (Reason: Abdominal Pain) Label Comments: States she takes as needed but always takes in the morning and at bedtime Discharge Orders: Discharge Order (Routine); Ordered 07/10/22 Ordered By: Rosaura Jansen Admission Data Admit Date/Time: 07/06/22 20:06 Attending Provider: Rosaura Jansen Admit Provider: Rosaura Jansen Primary Care Provider: Long [place] Other Interventions: Discharge Summary Assessment (RN) Last Done: 07/10/22 09:54 PSY Interdisciplinary Discharge Planning Last Done: 07/10/22 09:56 Coding Level of Care Code 49768 D/C day mgmt > 30 min Diagnoses Anxiety F41.9 Crohn's disease K50.90 Digestive disease complication type: without complication Gastrointestinal tract location: unspecified location
[2022-07-10] MEDS: DICYCLOMINE HCL 10 MG CAP PO SCH (09:48)
[2022-07-10] MEDS: FAMOTIDINE 10 MG TABLET PO SCH (09:48)
[2022-07-10 09:56] VITALS: BP 97/62; PULSE 73
== END 2022-07-10 10:21 | disposition home or self-care (01) | DRG 880 ==
LOC: ED 17:08 → 3S 20:06